=== PATIENT | male | born 1960 | race Caucasian/White ===

== ENCOUNTER 2016-03-03 12:22 | Inpatient (IN) | payer BC, OTHER ==
[~2016-03-03] VITALS: Ht 172.7 cm; Wt 79.0 kg
[2016-03-03 13:00] VITALS: BP 127/72
[2016-03-03 14:35] LABS: Albumin 4.2 g/dL (3.4-5.0); BUN/Creatinine Ratio 9.5; Bilirubin, Total 0.6 mg/dL (0.2-1.0); Calcium 9.5 mg/dL (8.5-10.1); Magnesium 2.4 mg/dL (1.6-2.6); Potassium 3.7 mmol/L (3.5-5.1); Total Protein 8.5 g/dL (6.4-8.2)
[2016-03-03 14:40] LABS: Basophils # (auto) 0.1 uL; Basophils % (auto) 0.6 % (0.0-2.0); Eosinophils # (auto) 0.2 uL; Eosinophils % (auto) 2.2 % (0.0-7.0); Hematocrit 47.2 % (41.0-53.0); Hemoglobin 15.4 g/dL (13.5-17.5); Lymphocytes # (auto) 2.6 uL; Lymphocytes % (auto) 27.4 % (10.0-50.0); Mean Corpuscular Hemoglobin 30.6 pg (28.0-32.0); Mean Corpuscular Hgb Conc. 32.7 g/dL (32.0-36.0); Mean Corpuscular Volume 93.5 fL (80.0-100.0); Mean Platelet Volume 8.6 fL (7.4-10.4); Monocytes # (auto) 0.7 uL; Monocytes % (auto) 6.9 % (0.0-12.0); Neutrophils % (auto) 62.9 % (37.0-80.0); Platelet Count (auto) 356 10^3/uL (140-450); Red Cell Distribution Width 14.5 % (11.6-16.0); SUSPECT VIEW TRANSMISSION; White Blood Cell 9.5 10^3/uL (4.4-10.8)
[2016-03-03] MEDS ORDERED: LORazepam 2MG/ML-1ML VIAL IV ONE (15:15)
[2016-03-03] MEDS ORDERED: ASPirin 81 mg TAB PO ONE (15:15)
[2016-03-03] MEDS ORDERED: ATORVASTATIN 20 MG TAB PO ONE (15:15)
[2016-03-03] MEDS: ATORVASTATIN 20 MG TAB PO SCH (15:20)
[2016-03-03 15:34] LABS: Cholesterol 232 mg/dL (<200); HDL Cholesterol 46 mg/dL (40-59); LDL Cholesterol 161 mg/dL (<100); Triglycerides 225 mg/dL (<150)
[2016-03-03] MEDS ORDERED: TEMAZEPAM 15 MG CAP PO PRN (16:00)
[2016-03-03] MEDS ORDERED: HYDROcodone-ACET 5/325MG TAB PO PRN (16:00)
[2016-03-03] MEDS ORDERED: LACTULOSE 20Gm/30ML SOLN PO PRN (16:00)
[2016-03-03] MEDS ORDERED: ACETAMINOPHEN 500 MG TAB PO PRN (16:00)
[2016-03-03] MEDS ORDERED: MORPHINE SULF INJ 2 MG/ML SYRINGE 1ML IV PRN ×2 (16:00)
[2016-03-03] MEDS ORDERED: NITROGLYCERIN 0.4 MG SL TAB SL PRN (16:00)
[2016-03-03] MEDS ORDERED: PROMETHAZINE HCL 25 MG/ML 1ML IV PRN (16:00)
[2016-03-03] MEDS ORDERED: LORazepam 0.5 MG TAB PO PRN (16:00)
[2016-03-03] MEDS ORDERED: ENOXAPARIN SOD 40 MG/0.4 ML SYRINGE SC ONE (16:15)
[2016-03-03] MEDS: SODIUM CHLORIDE 0.9% 1,000 ML IV SCH (16:35)
[2016-03-03 16:39] LABS: Temperature: 21.9 C (20.0-25.0)
[2016-03-03 20:00] VITALS: BP 121/61
[2016-03-03] MEDS ORDERED: LISI10TA6 PO (20:12)
[2016-03-03 20:29] VITALS: BP 121/61
[2016-03-04 05:00] VITALS: BP 119/76
[2016-03-04] MEDS: SODIUM CHLORIDE 0.9% 1,000 ML IV SCH ×2 (05:17→05:19)
[2016-03-04 09:00] VITALS: BP 124/69
[2016-03-04 09:04] LABS: Urine RBC None Seen /hpf (0 - 3)
[2016-03-04 09:36] LABS: Urine Bilirubin Negative (Negative); Urine Blood Negative /uL (Negative); Urine Color Yellow (Yellow); Urine Glucose Normal (Normal); Urine Ketone Negative (Negative); Urine Nitrite Negative (Negative); Urine Urobilinogen Normal (Negative); Urine pH 6.5 (5.0-8.0)
[2016-03-04] MEDS ORDERED: ENOXAPARIN SOD 40 MG/0.4 ML SYRINGE SC SCH (10:00)
[2016-03-04] MEDS ORDERED: ASPirin 81 mg TAB PO SCH (10:00)
[2016-03-04] MEDS ORDERED: FOLIC ACID 1 MG TAB PO ONE (10:45)
[2016-03-04] MEDS ORDERED: IOHEXOL 350 MG/ML 100ML IJ ONE (11:55)
[2016-03-04 13:00] VITALS: BP 119/67
[2016-03-04] MEDS ORDERED: ENOXAPARIN SOD 80 MG/0.8ML SYRINGE SC ONE (13:45)
[2016-03-04 17:00] VITALS: BP 125/68
[2016-03-04] MEDS: ENOXAPARIN SOD 80 MG/0.8ML SYRINGE SC SCH (21:16)
[2016-03-04] MEDS: APIXABAN 5 MG TAB PO SCH (21:17)
[2016-03-04 21:34] VITALS: BP 112/66
[2016-03-05 05:08] VITALS: BP 110/57
[2016-03-05 09:00] VITALS: BP 120/84
[2016-03-05] MEDS: FOLIC ACID 1 MG TAB PO SCH (09:48)
[2016-03-05] MEDS: APIXABAN 5 MG TAB PO SCH ×2 (09:49→21:06)
[2016-03-05] MEDS: ATORVASTATIN 20 MG TAB PO SCH (09:49)
[2016-03-05] MEDS: ENOXAPARIN SOD 80 MG/0.8ML SYRINGE SC SCH ×2 (09:49→21:06)
[2016-03-05 13:00] VITALS: BP 127/72
[2016-03-05 17:00] VITALS: BP 132/76
[2016-03-05 22:00] VITALS: BP 113/67
[2016-03-06 05:00] VITALS: BP 135/75
[2016-03-06 09:00] VITALS: BP 126/63
[2016-03-06] MEDS: APIXABAN 5 MG TAB PO SCH (10:24)
[2016-03-06] MEDS: FOLIC ACID 1 MG TAB PO SCH (10:24)
[2016-03-06] MEDS: ATORVASTATIN 20 MG TAB PO SCH (10:25)
[2016-03-06] MEDS: ENOXAPARIN SOD 80 MG/0.8ML SYRINGE SC SCH (10:25)
[2016-03-06 13:37] VITALS: BP 123/74
[2016-03-07 12:06] LABS: Protein S Antigen Free 137 % (57-157); Proten S Antigen Total 136 % (60-150)
== END 2016-03-06 18:14 | disposition home or self-care (01) | DRG 66 ==
LOC: ER 12:40 → TELE 12:41 → TELE-CENTR 19:42
PROVIDERS: ADMIT Internal Medicine; ATTEND Family Medicine
DX: I63.9 Cerebral infarction, unspecified (principal); H53.2 Diplopia; I10 Essential (primary) hypertension; E78.5 Hyperlipidemia, unspecified; F17.210 Nicotine dependence, cigarettes, uncomplicated; Z79.82 Long term (current) use of aspirin; Z82.3 Family history of stroke; Z85.038 Personal history of other malignant neoplasm of large intestine; Z86.73 Personal history of transient ischemic attack (TIA), and cerebral infarction without residual deficits; Z98.890 Other specified postprocedural states; Z83.2 Family history of diseases of the blood and blood-forming organs and certain disorders involving the immune mechanism; Z84.89 Family history of other specified conditions
CPT/HCPCS: 36415; 70450; 70460; 70498; 70551; 80053; 80061; 81001; 81241; 82550; 82607; 82746; 83090; 83735; 84443; 84484; 85025; 85302; 85305; 85306; 85613; 85652; 85670; 85705; 85732; 93306; 93886; 96372; 96374; 99291; G0434